=== PATIENT | male | born 1965 | race Caucasian/White ===

== ENCOUNTER 2025-01-22 03:41 | Emergency (ER) | payer BC, MEDICAID ==
[~2025-01-22] VITALS: Ht 185.4 cm; Wt 113.4 kg
[~2025-01-22 03:41] MED LIST: ALBU18HF2 INH; ALPR0.5T8 PO; ATOR10TA70 PO; COU1T PO; GLIP10TA18 PO; METF500T PO; METH-603 PO; WARF-113 PO
[2025-01-22 03:47] VITALS: BP 174/95; PULSE 77; RESP 18; TEMP 97.2; O2SAT 100
--- NOTE | 2025-01-22 05:19 | Physician Documentation ---
History of Present Illness ~ Chief Complaint: Rash Stated Complaint: RASH ON ARMS Time Seen by MD: 05:17 Primary Medical Doctor: SIA Source: patient Mode of Arrival: POV Exam Limitations: no limitations HPI Chief Complaint: Rash Caveat: None Independent Historians: None History of Present Illness: Patient is a 59-year-old man who comes in complaining of a rash over both antecubital fossas and flexor surface of the forearm. Patient states that the rash has not itch. It appeared 2-3 days ago. Patient has not tried anything for the rash. Patient denies any other symptoms. Review of systems: All systems were reviewed and are negative except for what is indicated in the history of present illness. Past Medical History: Type 2 diabetes, patient states that he has not seen a doctor and has not seen a doctor for some time and isn't on any medications. Past Surgical History: Noncontributory Social History: No tobacco use, no alcohol use, no drug use Medications: Reviewed as documented Nursing Notes Allergies: Reviewed as documented in Nursing Notes Medication Reconciliation Allergies: Coded Allergies: No Known Allergies (Unverified , 11/27/09) Scheduled Atorvastatin Calcium (Atorvastatin Calcium), 1 TAB PO DAILY, (Reported) Glipizide (Glipizide), 2 TAB PO QAM, (Reported) Metformin Hcl* (Glucophage*), 1,000 MG PO DAILY, (Reported) Methadone Hcl* (Dolophine*), 1 TAB PO BID, (Reported) Warfarin Sodium* (Coumadin*), 5 MG PO DAILY, (Reported) Warfarin Sodium* (Coumadin*), 1 TAB PO DAILY, (Reported) Scheduled PRN Albuterol Sulfate (Ventolin Hfa), 2 PUFFS INH Q4HPRN PRN for SOB or wheezing, (Reported) Alprazolam (Alprazolam), 1 TAB PO Q12H PRN PRN for for anxiety/agitation, (Reported) Past Medical History Past Medical History: Diabetes, Chronic Back Pain, Deep Vein Thrombosis Past Surgical History: orthopedic surgeries Alcohol Use: None Drug Use: none Lives with: Family Lives In: Home Occupation: unemployed Review of Systems All Other Systems at this time: Reviewed and Negative ROS Patient denies any other acute symptoms other than above. All other systems are negative Physical Exam Vital Signs: RN Vital Signs have been reviewed: Yes, Temperature: 97.2, Source: Temporal, Heart Rate: 77, Respiratory Rate: 18, BP: 174/95, Pulse Oximetry: 100, Weight: 113.360 Oxygen Flow Rate: 0 Pulse Oximetry Reflects: adequate oxygenation Physical Exam General Appearance: No distress Neck: supple, normal ROM, trachea midline Pulmonary: No respiratory distress, CTA, BS equal Cardiac: RRR, no murmur, rub or gallop, Extremities: normal ROM, no swelling, non-tender Skin: intact, dry, warm, over the antecubital fossa and flexor surface of the forearms is pink macules that are almost waxy appearing. No vesicles. No petechiae. No crusting. Neuro: AAOx3, speech is clear, no focal motor weakness Psych: normal affect, good eye contact, no apparent hallucination, normal speech Progress Results/Orders Results/Orders Vital Signs 01/22/25 03:47 Temp 97.2 Pulse 77 Resp 18 B/P (MAP) 174/95 Pulse Ox 100 O2 Flow Rate 0 Medical Decision Making Findings Differential diagnosis includes but is not limited to: Scabies, impetigo, contact dermatitis, eczema Emergency department course/medical decision-making: Cause of the rash is unknown. Patient is instructed to try Lubriderm and if that does not resolve the rash Lotrimin. Patient does not have a primary care doctor. There is no evidence of any medical or surgical emergency here. The cause of the rash is unknown. Patient is instructed to find a primary care doctor in to get referred to a cash reconciliation specialist. Patient is stable for discharge. Departure Time of Disposition: 05:18 Disposition: 01 HOME / SELF CARE / HOMELESS Impression: Primary Impression: Rash Discharge Instructions: Rash, Adult Additional Instructions: YOU NEED TO FIND A PRIMARY CARE DOCTOR FOR REFERRAL TO A CREW DISPATCHER. I AM NOT CERTAIN OF THE CAUSE OF THE RASH. TRY LUBRIDERM FOR THE RASH. YOU MAY ALSO TRY LOTRIMIN. Education Educated: Patient Educated regarding: diagnosis, treatment, need for follow up Signature Scribe Signature: . Attestation: . EILEEN HAYS MD Jan 22, 2025 05:19
== END 2025-01-22 05:30 | disposition home or self-care (01) ==
LOC: ER 03:42
DX: R21 Rash and other nonspecific skin eruption (principal); E11.9 Type 2 diabetes mellitus without complications; Z86.718 Personal history of other venous thrombosis and embolism; Z79.899 Other long term (current) drug therapy; Z56.0 Unemployment, unspecified
CPT/HCPCS: 99282